=== PATIENT | male | born 1990 | race Caucasian/White ===

== ENCOUNTER 2017-06-28 13:27 | Emergency (ER) | payer OTHER ==
[2017-06-28] MEDS: AZITHROMYCIN 250 MG TAB PO (14:29)
== END 2017-06-28 14:40 | disposition home or self-care (01) ==
LOC: M ED 13:27
DX: Z20.2 Contact with and (suspected) exposure to infections with a predominantly sexual mode of transmission (principal)
CPT/HCPCS: 99282